=== PATIENT | male | born 1990 | race Caucasian/White ===

== ENCOUNTER 2025-04-20 09:42 | Outpatient (CLI) | payer BC ==
[2025-04-20 11:07] LABS: #Basophils 0.03 10x3/uL (0.0-0.2); #Eosinophils 0.05 10x3/uL (0.0-0.7); #Monocytes 0.38 10x3/uL (0.11-0.59); #Neutrophils 2.42 10x3/uL (1.40-6.50); %Basophils 0.6 % (0.0-1.0); %Eosinophils 1.0 % (0.0-10.0); %Lymphocytes 41.4 % (21.0-51.0); %Monocytes 7.7 % (0.0-10.0); %Neutrophils 48.9 % (42.0-75.0); Hematocrit 44.7 % (42.0-52.0); Hemoglobin 15.1 g/dL (14.0-18.0); Mean Corpuscular Hemoglobin 29.6 pg (27.0-31.0); Mean Corpuscular Volume 87.6 fL (78.0-98.0); Platelet Count 241 10x3/uL (130-400); Red Blood Cell (RBC) Count 5.10 mill/uL (4.70-6.10); White Blood Cell (WBC) Count 4.95 10x3/uL (4.8-10.8)
[2025-04-20 11:27] LABS: INR-International Normal Ratio 1.1; PTT 29.0 sec (22.9-36.1); Prothrombin Time 14.0 sec (12.0-14.7)
[2025-04-20 11:30] LABS: Anion Gap 14 mmol/L (10-20); BUN (Urea Nitrogen) 14 mg/dL (8.9-20.6); Calc. Creatinine Clearance 0 mL/min (70-130); Calcium 9.7 mg/dL (7.8-10.44); Carbon Dioxide 26 mmol/L (22-29); Chloride 102 mmol/L (98-107); Glucose 112 mg/dL (70-105); Potassium 4.1 mmol/L (3.5-5.1); Sodium 138 mmol/L (136-145)
== END 2025-04-20 09:43 | disposition home or self-care (01) ==
LOC: LABBT 09:42
PROVIDERS: ATTEND Urology
DX: Z01.818 Encounter for other preprocedural examination (principal); N20.2 Calculus of kidney with calculus of ureter; R35.0 Frequency of micturition
CPT/HCPCS: 80048; 85025; 85610; 85730; 93005; 93010

== ENCOUNTER 2025-04-24 06:07 | Day surgery (SDC) | payer BC ==
[2025-04-24] MEDS ORDERED: LevoFLOXacin D5W 500 mg (100 mL) BAG ONE (06:44)
[2025-04-24] MEDS ORDERED: Rocuronium Bromide 10 MG/ML (10ML VIAL) ONE (07:30)
[2025-04-24] MEDS ORDERED: Ketorolac Tromethamine 30 MG (1 mL) VIAL ONE (07:30)
[2025-04-24] MEDS ORDERED: Ondansetron PF 4 MG/2 ML Vial ONE (07:30)
[2025-04-24] MEDS ORDERED: PROPOFOL 200 MG/20 ML VIAL ONE (07:30)
[2025-04-24] MEDS ORDERED: Lidocaine 1% PF 5 ML VIAL ONE (07:30)
[2025-04-24] MEDS ORDERED: Oxybutynin 5 MG TAB ONE (08:52)
== END 2025-04-24 11:25 | disposition home or self-care (01) ==
LOC: SDC 06:07
PROVIDERS: ATTEND Urology
PROC: 0TC68ZZ Extirpation of Matter from Right Ureter, Via Natural or Artificial Opening Endoscopic (ICD-10-PCS; principal; 2025-04-24)
PROC: 0T768DZ Dilation of Right Ureter with Intraluminal Device, Via Natural or Artificial Opening Endoscopic (ICD-10-PCS; principal; 2025-04-24)
DX: N13.2 Hydronephrosis with renal and ureteral calculous obstruction (principal); F90.9 Attention-deficit hyperactivity disorder, unspecified type; E78.5 Hyperlipidemia, unspecified; E66.9 Obesity, unspecified; Z68.32 Body mass index [BMI] 32.0-32.9, adult; Z82.69 Family history of other diseases of the musculoskeletal system and connective tissue; Z90.49 Acquired absence of other specified parts of digestive tract; Z79.899 Other long term (current) drug therapy
CPT/HCPCS: 74018; 74420; 82365; 88300; C1758; C1769; C2617; J1100; J1885; J1956; J2250; J2405; J2704; Q9967